=== PATIENT | male | born 1945 | race Caucasian/White ===

== ENCOUNTER 2017-03-30 16:43 | Inpatient (IN) ==
--- NOTE | 2017-03-30 17:56 | PROVIDER DOCUMENTATION ---
This chart was entered by Po Allen Scribe, acting as scribe for Hany Veloz CRNP. HPI-Syncope/Dizziness - General Source: patient - History of Present Illness-Syncope/Dizzy Prior Episodes: reports: single episode today Onset/Duration: reports: abrupt, this afternoon Timing: reports: gone now Position/Activity at time of episode: reports: activity (chasing chicken) Symptoms prior to episode: reports: lightheaded, other (shortness of breath) Context: reports: lost consciousness, collapsed. denies: incontinent of stool, lost pulse, seizure activity observed Loss of Consciousness: brief (seconds) Location of injury. (If syncope resulted in an injury.): reports: none Current Symptoms: reports: none/feels normal Recently Seen Here or By Another Healthcare Provider: No <Hany Veloz - Last Filed: 03/30/17 17:55> - General Source: patient <BriannaAlessandro MichaelArtemio - Last Filed: 03/30/17 21:31> - General Chief Complaint: Near Syncope Stated Complaint: syncope Time Seen by Provider: 03/30/17 17:30 Allergies/Adverse Reactions: Patient Allergies Allergy/AdvReac Type Severity Reaction Status Date / Time No Known Allergies Allergy Verified 03/30/17 17:48 Home Medications: Home Medication List Medication Instructions Recorded Confirmed Last Taken Type NK [No Home Medications] 03/30/17 03/30/17 Unknown History - History of Present Illness-Syncope/Dizzy Nature of Presenting Problem: Patient is a 71 y/o M that presents to the ER via EMS after having a syncopal episode after chasing his chickens. patient reports for the past 7 months getting short of breath due when he exerts himself. Denies chest pain, n/v, or visual changes. Hasn't seen a pcp for this. Reports when he was chasing the chickens today he got short of breath and passed out, feels back to his normal self now.. (Po Allen) Patient is a 71 y/o M that presents to the ER via EMS after having a syncopal episode after chasing his chickens. patient reports for the past 7 months getting short of breath due when he exerts himself. Denies chest pain, n/v, or visual changes. Hasn't seen a pcp for this. Reports when he was chasing the chickens today he got short of breath and passed out, feels back to his normal self now.. (Hany Veloz) Review of Systems - Adult - REVIEW OF SYSTEMS - ADULT Constitutional: denies: fever, fatique Eyes: denies: decreased vision, blurred vision, double vision Ears, Nose, Mouth & Throat: denies: ear discharge, ear pain, epistaxis, sinus problem, throat pain Cardiovascular: reports: syncope. denies: chest pain, palpitations Respiratory: reports: dyspnea on exertion, shortness of breath. denies: cough, wheezing Gastrointestinal: denies: abdominal pain, diarrhea, nausea, vomiting Genitourinary: reports: no symptoms reported Musculoskeletal: reports: no symptoms reported Integumentary: reports: no symptoms reported Neurological: reports: dizziness/vertigo, syncope. denies: headache/migraines, seizure Psychiatric: reports: no symptoms reported Endocrine: reports: no symptoms reported Hematologic/Lymphatic: reports: no symptoms reported Allergic/Immunologic: reports: no symptoms reported All Other Systems: Reviewed and Negative <Hany Veloz - Last Filed: 03/30/17 17:55> - REVIEW OF SYSTEMS - ADULT Constitutional: denies: fever <Alessandro Reed - Last Filed: 03/30/17 21:31> Past History - Adult - PAST MEDICAL HISTORY-ADULT Review of Records: reports: Old Records Reviewed, Nursing Assessment Review, Medications Reviewed <Hany Veloz - Last Filed: 03/30/17 17:55> - PAST MEDICAL HISTORY-ADULT Review of Records: reports: Old Records Reviewed, Nursing Assessment Review, Medications Reviewed, Social history reviewed & non-contributory. <Alessandro Reed - Last Filed: 03/30/17 21:31> Physical Exam-General - PHYSICAL EXAM-ADULT Initial Vital Signs Reviewed: Yes - CONSTITUTIONAL General Appearance: alert, no apparent distress - EYES Eyes: PERRL/EOMI, pink conjunctivae - HEAD, EARS, NOSE, MOUTH & THROAT HENMT: normocephalic/atraumatic, moist mucous membranes, normal ENT inspection - NECK Neck: non-tender, full range of motion, normal inspection - RESPIRATORY Respiratory: chest non-tender, lungs clear, normal breath sounds, no respiratory distress, no accessory muscle use - CARDIOVASCULAR Cardiovascular: regular rate, rhythm, no edema, no murmur - GASTROINTESTINAL (ABDOMEN) Abdominal Exam: normal bowel sounds, non tender, soft, no organomegaly, no pulsatile mass - MUSCULOSKELETAL Back Exam: no CVA tenderness, no vertebral tenderness Extremity: normal range of motion, normal inspection, no pedal edema, pelvis stable - SKIN Integumentary: normal color, warm/dry - NEUROLOGIC Neurologic: automatic mold sander II-XII nml as tested, no motor/sensory deficits. negative: aphasia, facial droop, focal weakness, motor weakness, sensory deficit - PSYCHIATRIC Psych/Mental Status: normal mood/affect, normal thought content, normal thought process, oriented x 3 <Hany Veloz - Last Filed: 03/30/17 17:55> - PHYSICAL EXAM-ADULT Initial Vital Signs Reviewed: Yes - CONSTITUTIONAL General Appearance: alert, no apparent distress <Alessandro Reed - Last Filed: 03/30/17 21:31> Progress - EKG 1 Time of EKG reading by physician:: 17:12 EKG Read and Signed by:: Vishnu Parker EKG Interpretation (*Must complete 3 of following elements*): Abnormal Rate: 69 Rhythm: NSR [place]: left [place] Interval: normal ST Wave: non-specific ST changes - CHANGE OF SHIFT REPORT (ED Provider) Report Given and Care Transferred to:: Dr. Reed Time of Transfer: 17:55 Items Pending: Labs, XRAY Results, CT/MRI Results <Hany Veloz - Last Filed: 03/30/17 17:55> - PLAN OF CARE/RESULTS Result Diagrams: 03/30/17 17:55 03/30/17 17:55 - CONSULTS/PCP/HOSPITALIST Notification #1 *Consult/PCP/Hospitalist*: Dr Dominique Time Discussed: 21:29 Consult Disposition: Admit #2 Consult: Dr Michael Time Discussed: 21:29 Consult Disposition: Will see in ED <Alessandro Reed - Last Filed: 03/30/17 21:31> - PLAN OF CARE/RESULTS Progress/Plan/Lab Results: Vital Signs - 8 hr 03/30/17 17:06 03/30/17 18:24 03/30/17 19:14 Pulse Rate 79 70 71 Respiratory Rate 21 23 20 Blood Pressure 105/62 104/63 103/64 O2 Sat by Pulse Oximetry 95 99 99 Laboratory Results - last 24 hr 03/30/17 03/30/17 03/30/17 17:55 17:55 17:55 WBC 9.23 RBC 4.43 L Hgb 13.3 L Hct 40.4 L MCV 91.2 MCH 30.0 MCHC 32.9 L RDW Std Deviation 13.6 Plt Count 192 MPV 10.3 Immature Gran % (Auto) 0.0 Neut % (Auto) 74.6 Lymph % (Auto) 14.4 L [place] % (Auto) 9.6 H Eos % (Auto) 1.2 Baso % (Auto) 0.2 Immature Gran # (Auto) 0.00 Neut # (Auto) 6.88 H Lymph # (Auto) 1.33 [place] # (Auto) 0.89 H Eos # (Auto) 0.11 Baso # (Auto) 0.02 D-Dimer Sodium 140 Potassium 4.6 Chloride 104 Carbon Dioxide 24 L Anion Gap 12 BUN 18 Creatinine 1.1 Estimated GFR/1.73 m2 > 60 BUN/Creatinine Ratio 16 Glucose 100 POC Glucose Calculated Osmolality 281 Calcium 8.8 Magnesium 2.2 Total Bilirubin 0.48 AST 27 ALT 15 Alkaline Phosphatase 57 Creatine Kinase 303 H Creatine Kinase Index 1.9 CK-MB (CK-2) 5.89 H Troponin T Xog-W-Sqrbapphxhp Pept 1843 H Total Protein 6.9 Albumin 3.8 Globulin 3.1 Albumin/Globulin Ratio 1.2 03/30/17 03/30/17 03/30/17 17:55 17:55 18:27 WBC RBC Hgb Hct MCV MCH MCHC RDW Std Deviation Plt Count MPV Immature Gran % (Auto) Neut % (Auto) Lymph % (Auto) [place] % (Auto) Eos % (Auto) Baso % (Auto) Immature Gran # (Auto) Neut # (Auto) Lymph # (Auto) [place] # (Auto) Eos # (Auto) Baso # (Auto) D-Dimer 0.27 Sodium Potassium Chloride Carbon Dioxide Anion Gap BUN Creatinine Estimated GFR/1.73 m2 BUN/Creatinine Ratio Glucose POC Glucose 96 Calculated Osmolality Calcium Magnesium Total Bilirubin AST ALT Alkaline Phosphatase Creatine Kinase Creatine Kinase Index CK-MB (CK-2) Troponin T 0.105 H Nsy-T-Gpkuntgrmcd Pept Total Protein Albumin Globulin Albumin/Globulin Ratio 03/30/17 03/30/17 19:15 19:15 WBC RBC Hgb Hct MCV MCH MCHC RDW Std Deviation Plt Count MPV Immature Gran % (Auto) Neut % (Auto) Lymph % (Auto) [place] % (Auto) Eos % (Auto) Baso % (Auto) Immature Gran # (Auto) Neut # (Auto) Lymph # (Auto) [place] # (Auto) Eos # (Auto) Baso # (Auto) D-Dimer Sodium Potassium Chloride Carbon Dioxide Anion Gap BUN Creatinine Estimated GFR/1.73 m2 BUN/Creatinine Ratio Glucose POC Glucose Calculated Osmolality Calcium Magnesium Total Bilirubin AST ALT Alkaline Phosphatase Creatine Kinase 298 H Creatine Kinase Index 2.2 CK-MB (CK-2) 6.52 H Troponin T 0.131 H Agq-K-Cmlmttdvsro Pept Total Protein Albumin Globulin Albumin/Globulin Ratio Orders Category Date Time Status Cardiac Monitoring DIRECTED Care 03/30/17 17:17 Active Saline Loc NOW Care 03/30/17 17:17 Active CHEST-2 VIEWS [RAD] Stat Exams 03/30/17 17:[address] HEAD W/O CONTRAST [CT] Stat Exams 03/30/17 17:33 Completed CBC WITH ELECTRONIC DIFF [HEME] Stat Lab 03/30/17 17:55 Completed CK PROFILE [SP CHEM] Stat Lab 03/30/17 17:55 Completed CK PROFILE [SP CHEM] Stat Lab 03/30/17 19:15 Completed COMPREHENSIVE METABOLIC PANEL [CHEM] Stat Lab 03/30/17 17:55 Completed D-DIMER [CHEM] Stat Lab 03/30/17 17:55 Completed MAGNESIUM [CHEM] Stat Lab 03/30/17 17:55 Completed PRO B-NATRIURETIC PEPTIDE Stat Lab 03/30/17 17:55 Completed TROPONIN T Stat Lab 03/30/17 17:55 Completed TROPONIN T Stat Lab 03/30/17 19:15 Completed Enoxaparin 1 mg/kg [Lovenox 1 mg/kg] Med 03/30/17 21:21 Discontinued 1 each SUBQ NOW ONE EKG [EKG] Stat Ther 03/30/17 17:17 Ordered EKG [EKG] Stat Ther 03/30/17 18:54 Ordered Departure - Critical Care Note This patient required my direct & personal management of CC.: No <Hany Veloz - Last Filed: 03/30/17 17:55> - Departure Date of Disposition Decision: 03/30/17 Time of Disposition Decision: 21:30 Certified Medical Emergency: Emergent - Critical Care Note This patient required my direct & personal management of CC.: No <Alessandro Reed - Last Filed: 03/30/17 21:31> - Departure DIAGNOSIS: Syncope Qualifiers: Syncope type: unspecified Qualified Code(s): R55 - Syncope and collapse Disposition: ADMITTED INPATIENT 09 Condition: Good Referrals and Follow-Ups: Fernando Martinez MD [Primary Care Provider] - Attestation - Physician/ DELICIA Attestation Patient care was provided by Advanced Practice Provider:: Yes Advanced Practice Provider:: Hany Veloz Advanced Practice Provider documentation review:: The Mid-level provider documentation, treatment plan and medical decision making was reviewed by the physician who agrees with all treatment and medical decision making by the MLP. The physician spent face to face time with patient:: Yes Advanced Practice Provider documentation review:: Supervising physician onsite and consulted in the evaluation and care of this patient. The physician did have a face to face encounter with the patient. <Hany Veloz - Last Filed: 03/30/17 17:55> - Physician/ DELICIA Attestation Patient care was provided by Advanced Practice Provider:: Yes Advanced Practice Provider documentation review:: The Mid-level provider documentation, treatment plan and medical decision making was reviewed by the physician who agrees with all treatment and medical decision making by the MLP. The physician spent face to face time with patient:: Yes Advanced Practice Provider documentation review:: Supervising physician onsite and consulted in the evaluation and care of this patient. The physician did have a face to face encounter with the patient. <Alessandro Reed - Last Filed: 03/30/17 21:31> This chart was documented by the indicated scribe, (Po Allen Scribe) and accurately reflects the services I performed and decisions made by me, Hany Veloz CRNP, as attested by the provider's signature.
[2017-03-30 18:11] LABS: MANUAL DIFF NEEDED? NO
[2017-03-30 18:14] LABS: BASO% 0.2 % (0.0-0.8); EOS# 0.11 X1000 (0.0-0.7); EOS% 1.2 % (0.0-10.0); HEMATOCRIT 40.4 % (42.0-52.0); HEMOGLOBIN 13.3 g/dL (14.0-18.0); LYMPH# 1.33 X1000 (1.2-3.4); LYMPH% 14.4 % (20.5-51.1); MCHC 32.9 g/dL (33-37); MCV 91.2 FL (81-99); MONO# 0.89 X1000 (0.11-0.59); MONO% 9.6 % (1.7-9.3); MPV 10.3 FL (7.4-10.4); NEUT% 74.6 % (42.2-75.2); PLT 192 X1000 (130-400); RBC 4.43 XMIL (4.7-6.1)
--- NOTE | 2017-03-30 18:40 | Diag Imaging Result Doc PS360 ---
EXAM: CT HEAD WITHOUT HISTORY: Syncope, dizziness TECHNIQUE: CT brain without contrast. Dose reduction protocol. COMPARISON: None. FINDINGS: No parenchymal hemorrhage. No epidural or subdural hematoma. No subarachnoid hemorrhage. No mass identified on this noncontrasted exam. No hydrocephalus. No sinus opacification. IMPRESSION: No hemorrhage. Negative brain CT without contrast. Electronically signed by Goldy Youngblood 03/30/2017 6:38 PM
[2017-03-30 18:43] LABS: AGAP 12; ALBUMIN 3.8 g/dL (3.5-5.0); ALKALINE PHOSPHATASE 57 U/L (32-122); BUN 18 mg/dL (8-22); CALCIUM 8.8 mg/dL (8.8-10.2); CHLORIDE 104 mmol/L (98-107); COSMO 281; GOT 27 U/L (10-34); GPT 15 U/L (10-44); MAGNESIUM 2.2 mg/dL (1.5-2.7); POTASSIUM 4.6 mmol/L (3.5-5.1); SODIUM 140 mmol/L (136-145); TCO2 24 mmol/L (25-35); TOTAL BILIRUBIN 0.48 mg/dL (0.20-1.00); TOTAL PROTEIN 6.9 g/dL (6.3-8.3)
[2017-03-30 18:45] LABS: CK PROFILE 303 U/L (24-204)
--- NOTE | 2017-03-30 18:58 | Diag Imaging Result Doc PS360 ---
EXAM: CHEST-2 VIEWS HISTORY: syncope TECHNIQUE: COMPARISON: None. FINDINGS: The lungs are well expanded. The heart is not enlarged. The vessels are not distended. There are no infiltrates. No pleural effusions. IMPRESSION: No acute abnormality. Electronically signed by Goldy Youngblood 03/30/2017 6:56 PM
[2017-03-30 19:12] LABS: CK INDEX 1.9 (0.0-2.5); CK-MB 5.89 ng/mL (0.0-5.0)
[2017-03-30 20:47] LABS: CK INDEX 2.2 (0.0-2.5); CK-MB 6.52 ng/mL (0.0-5.0)
[2017-03-30] MEDS ORDERED: LOVENOX 1 MG/KG SUBQ ONE (21:21)
--- NOTE | 2017-03-30 21:28 | ED EKG INTERP ---
This chart was entered by Elena Montiel Scribe, acting as scribe for Alessandro Reed MD. EKG Interpretation - EKG Time of EKG reading by physician:: 19:52 EKG Read and Signed by:: Alessandro Reed EKG Interpretation (*Must complete 3 of following elements*): Abnormal Rate: 68 Rhythm: normal sinus rhythm Comments: abnormal ECG Attestation - Physician/ DELICIA Attestation Patient care was provided by Advanced Practice Provider:: No The physician spent face to face time with patient:: Yes Advanced Practice Provider documentation review:: Supervising physician onsite and consulted in the evaluation and care of this patient. The physician did have a face to face encounter with the patient. This chart was documented by the indicated scribe, (Elena Montiel Scribe) and accurately reflects the services I performed and decisions made by me, Alessandro Reed MD, as attested by the provider's signature.
[2017-03-30] MEDS ORDERED: LOVENOX SUBQ ONE ×2 (21:45)
--- NOTE | 2017-03-30 23:04 | HISTORY AND PHYSICAL ---
PATIENT OF: Fernando Martinez MD REASON FOR ADMISSION: Syncope today. HISTORY OF ADMITTING ILLNESS: Mr. Raymundo Evans is a pleasant 71-year-old male with no significant past medical history. He reports that the last 5 years he has been having increasing shortness of breath with diminishing activity levels. He says before he could go about 3 blocks before he became short of breath 5 year ago, but now just going less than 20 feet he becomes a little short of breath. He also says the more he exerts himself, the shorter the distance he goes. He denies any chest pain, no palpitations, no cough, no fever, no chills. No PND or orthopnea. No leg swelling or extremity redness or pain. Today, the patient report that he was chasing some of his chickens that got out of the barn and he became profoundly short of breath and lightheaded with palpitations, but no chest pain. He then made his way to his off-road vehicle where he sat down in the front seat and passed out. His who is at bedside concurs with the patient's history and says that she noticed that he was profoundly pale, diaphoretic, clammy and pretty much limp. She tried to wake him up for about 2-5 minutes and eventually he started to stare and was very drowsy. By the time EMS came, he had come back to himself. The patient reiterates that he has had no anginal-type symptoms today other than diaphoresis, nausea, dizziness and some palpitations in addition to the aforementioned shortness of breath. Currently, he is asymptomatic. His cardiac enzymes on admission have been mildly elevated, and he is being admitted to work up his cardiac status. REVIEW OF SYSTEMS: Twelve system review is negative. Positive findings noted as above. ALLERGIES: No allergies. MEDICATIONS: No medications. SURGERY: Comprised of 2 mm lens implants and sinus surgery. FAMILY HISTORY: Both his siblings have had heart attacks. No diabetes in first-degree relatives. SOCIAL HISTORY: Does not smoke, drink, or use drugs. Lives with his . DIAGNOSTICS/LABORATORY: His EKG shows normal sinus rhythm with poor R wave, questionable septal wave in V1 V2. Left axis deviation, normal sinus rhythm and LVH by voltage criteria. His chemistry is completely normal. First troponin was 0.105, second one 0.131. Index is normal. CK 303, BNP 8000. D-dimer was negative. White count 9000, hemoglobin and hematocrit 13 and 40, platelets 192,000. Chest film was normal. CT head was normal. PHYSICAL EXAMINATION: VITAL SIGNS: Blood pressure 103/64, heart rate 71, respirations 20, temperature afebrile. 99% on room air. GENERAL: He is a pleasant elderly man who is not in acute distress. He is alert and oriented x3. Normal mood and affect. HEENT: Head is normocephalic, atraumatic. Eyes KIMBERLY, EOMI. Anicteric not pale. ENT and oropharyngeal exam is grossly normal. No central cyanosis noted. NECK: Supple. No JVD or carotid bruit. No thyromegaly. CHEST: Clear to auscultation. Good air entry both lung ambrosio. CARDIOVASCULAR: First and second heart sounds heard. There is a loud 3-4 ejection systolic murmur which radiates to the neck. Also decreases slightly with inspiration. Rhythm is regular (patient states he has had this murmur since his childhood days). Pulses distally have good volume in all extremities and are symmetrical. No edema appreciated in extremities. ABDOMEN: Full, soft, without tenderness. No masses or organomegaly. Bowel sounds are normal. RECTAL: Examination is deferred at this time. EXTREMITIES: No clubbing or peripheral cyanosis. NEUROLOGIC: No focal deficits. SKIN: Intact. No breakdown or lesion or erythema. MUSCULAR: Grossly normal. ASSESSMENT: 1. Syncope, valvular ? disease versus underlying ischemic etiology. 2. Probable umr-MC-ncypakcqs myocardial infarction. 3. Systolic murmur ? aortic stenosis. PLAN: Dr. Dominique was notified about this patient and will see patient in a.m. Recommended [facility]. We will start patient on aspirin, statins. No role for beta blockers in this patient at this point in time with marginal blood pressure and acceptable heart rate. An echocardiogram will be done to rule out severe valvular disease i.e. aortic stenosis which could present like this. I will defer to Dr. Dominique to decide if he wants to go ahead and catheterize this patient. A lipid panel has been ordered and will need to be followed. Serial cardiac enzymes and EKGs to be done to ensure patient does not revert to ST-elevation myocardial infarction mastectomy which would require percutaneous coronary intervention for treatment ? Plavix in this patient may be beneficial. However, if we think patient will need cardiothoracic surgery, this may delay care. Also, recommend doing O2 saturation monitoring with patient ambulating to ensure that there is no pulmonary component to his presentation. cc: MD Fernando Lux MD
[2017-03-31] MEDS ORDERED: ZOFRAN IV PRN (00:43)
[2017-03-31] MEDS ORDERED: TYLENOL PO PRN (00:43)
[2017-03-31] MEDS ORDERED: LIPITOR PO ONE (00:43)
--- NOTE | 2017-03-31 05:23 | EKG Report ---
Test Performed on : 03/30/2017 4:52:30 PM Test Reason : Chest Pain Blood Pressure : / mmHG Vent. Rate : 069 BPM Atrial Rate : 069 BPM P-R Int : 202 ms QRS Dur : 078 ms QT Int : 356 ms P-R-T Axes : 054 -37 033 degrees QTc Int : 381 ms Normal sinus rhythm. Left axis deviation Voltage criteria for left ventricular hypertrophy Anteroseptal infarct , age undetermined Abnormal ECG No previous ECGs available Unconfirmed Result
[2017-03-31 06:04] LABS: AGAP 10; ALBUMIN 3.7 g/dL (3.5-5.0); ALKALINE PHOSPHATASE 55 U/L (32-122); BUN 16 mg/dL (8-22); CALCIUM 8.2 mg/dL (8.8-10.2); CHLORIDE 106 mmol/L (98-107); COSMO 284; GOT 26 U/L (10-34); GPT 14 U/L (10-44); HDL 42 mg/dL (35-55); LDL 150 mg/dL; POTASSIUM 4.6 mmol/L (3.5-5.1); SODIUM 142 mmol/L (136-145); TCO2 26 mmol/L (25-35); TOTAL BILIRUBIN 0.68 mg/dL (0.20-1.00); TOTAL PROTEIN 6.6 g/dL (6.3-8.3); TRIGLYCERIDES 113 mg/dL (39-160); VLDL 23 mg/dL
[2017-03-31] MEDS ORDERED: PRILOSEC PO SCH (07:00)
[2017-03-31] MEDS ORDERED: ASPIRIN PO SCH (09:00)
[2017-03-31] MEDS ORDERED: LOVENOX SUBQ SCH (10:00)
--- NOTE | 2017-03-31 11:21 | CONSULTATION ---
DATE OF CONSULTATION: 03/31/2017 HISTORY OF PRESENT ILLNESS: Cardiology was consulted for syncope, aortic stenosis, non Q-wave myocardial infarction. Mr. Raymundo Evans is a 71-year-old gentleman with no significant past medical history other than having had a murmur. He has noticed increasing shortness of breath for the last 3-4 years and this has gradually worsened. He says that before he could walk 3 blocks before being short of breath; now he can walk 20 feet and he becomes short of breath. The patient reported that he was in his van and became profoundly short of breath and lightheaded associated with some palpitations. He then went to his of off-road vehicle. His noted him having a near almost syncopal episode. He was pale, diaphoretic and clammy. She says that he had passed out for a couple of minutes. EMT was called and he was brought to the emergency room and was subsequently admitted. FOURTEEN POINT REVIEW OF SYSTEMS: GI: There is no history of nausea, vomiting, diarrhea. There is no history of hematemesis or melena. Central nervous system: No focal weakness to suggest a CVA or TIA. system: There is no dysuria or hematuria. Respiratory system: There is no history of cough, expectoration, hemoptysis. There is no history of fevers or chills. Endocrine system: Stable. PAST MEDICAL HISTORY: 1. History of a longstanding murmur. 2. Sinus surgery. 3. Lens implant for cataract. FAMILY HISTORY: Both his siblings have had heart attacks. The patient does not smoke, does not drink. ALLERGIES: He is not known to be allergic to any medications. MEDICATIONS: He is not on any medications currently. PHYSICAL EXAMINATION: Vital Signs: On examination, the blood pressure was 103/64. Cardiovascular system: Normal jugular venous pressure. First and second sounds were heard. There was ejection systolic murmur in the aortic area conducted to the carotids. There is also soft systolic murmur in the mitral area. Respiratory System: Normal air entry. There is no crepitations or rhonchi. Abdomen: Soft, obese, nontender. There was no guarding or rigidity. Bowel sounds were heard. Central nervous system: Alert and able to move all 4 extremities. Extremities: Examination of extremities revealed no pedal edema. HEENT: Atraumatic, normocephalic. Pupils were equal and reacting to light. LABORATORY EXAMINATION: Revealed sodium 142, potassium 4.6, BUN 16, creatinine 1.1. Troponin abnormal at 0.117 and 0.131. CK 298 and CK-MB of 6.52. Hematology: WBC 9.3, hemoglobin 13.3, hematocrit 40, platelet count of 192. D-dimer 0.27. RADIOLOGICAL EXAMINATION: Chest x-ray revealed no specific airspace disease. Electrocardiogram revealed normal sinus rhythm with left axis deviation, left ventricular hypertrophy, nonspecific ST-T changes. CT of the head was done without contrast which was unremarkable. ASSESSMENT AND PLAN: 1. Mr. Raymundo Evans is a 71-year-old gentleman, who has been having progressive symptoms for the last 3-4 years, has a murmur, had an episode of syncopal attack with significant diaphoresis. EMT was called as mentioned in the detailed history above and patient was admitted. The patient has non Q-wave myocardial infarction. 2. Has severe aortic stenosis. Given this, I have recommended that he undergo right and left heart catheterization. Risks, benefits, alternatives were explained. Patient will be set up for left and right heart catheterization shortly. 3. As far as medications are concerned, he is on aspirin and Lovenox. We will continue that. He has also been started on Lipitor to 80 mg a day. 4. A detailed echocardiogram report will be dictated shortly. Thanks for the consult. We will follow hospital course. cc: Rosales Pham MD
--- NOTE | 2017-03-31 11:46 | PROGRESS NOTE ---
DATE: 03/31/2017 SUBJECTIVE: This patient feels better. This patient is not complaining of shortness of breath or chest pain at this moment. Family members at the bedside. All their questions were answered. OBJECTIVE: Vital Signs: Temperature 98.1 degrees, pulse 61, respiratory rate 14, blood pressure 130/63, oxygen saturation 99 on room air. HEENT: Head normocephalic. No trauma. PERRLA. Neck: Supple. No JVD. No masses. Central trachea. Chest: Clear to auscultation. No wheezing. No rales. Cardiovascular: RRR. Systolic murmur radiating to the neck. Abdomen: Soft, nontender, nondistended. No hepatosplenomegaly. Extremities: No edema. No clubbing. No cyanosis. Neurological Examination: The patient is alert and oriented x3. No focal neurological deficits. Laboratory: Sodium 142, potassium 4.6, chloride 106, bicarbonate 26, BUN 16, creatinine 1.1, glucose 96, calcium 8.2. Troponin 0.11. ASSESSMENT AND PLAN: 1. Syncope. This is likely secondary to severe aortic stenosis. Probably, he also has an underlying ischemic process. Cardiology department following this patient. They will try to get a cardiac catheterization done today. 2. Severe aortic stenosis. Again, cardiology department following this patient. We will follow their recommendations. He has no symptoms at this moment. 3. Probably non-ST elevation myocardial infarction, as above. 4. Deep vein thrombosis prophylaxis. Continue with Lovenox twice a day. CRITICAL CARE TIME: 35 minutes. cc: Denzel Bhatt MD
[2017-03-31] MEDS ORDERED: HEPARIN 1000 UNITS/NS 2,000 UNIT/1,000 ML IV.SOLN ONE (12:26)
[2017-03-31] MEDS ORDERED: MORPHINE ONE (13:01)
[2017-03-31] MEDS ORDERED: VERSED ONE (13:01)
[2017-03-31] MEDS ORDERED: CLAVE PUMP SET NO FILTER 12260 ONE (13:02)
[2017-03-31] MEDS ORDERED: NS 1,000 ML ONE ×2 (13:02→14:12)
[2017-03-31] MEDS ORDERED: CLAVE TWINSITE 32 IN 11959 ONE (13:02)
[2017-03-31] MEDS ORDERED: NS 100 ML ONE (13:17)
[2017-03-31 16:34] VITALS: BP 128/78
[2017-03-31] MEDS ORDERED: LIPITOR PO SCH (22:15)
--- NOTE | 2017-04-01 04:05 | ECHO REPORT ---
ORDER DATE: 03/31/2017 MEASUREMENTS: Left ventricular end-diastolic diameter 5.9. Systolic diameter 3.6. Posterior wall thickness 1.3. Septal thickness 1.4. Left atrium 4.3. Aortic root 4.0. SUMMARY: 1. Adequate quality study. 2. 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 Aortic valve configuration is difficult to clearly discern, but the aortic valve is probably trileaflet. Peak gradient across the aortic valve is 136 mmHg, with a mean gradient of 87 mmHg. Calculated aortic valve area 0.6 cm2. There is very mild aortic regurgitation. Mitral, tricuspid, and pulmonic valves are without structural abnormality, with mild mitral regurgitation and mild tricuspid regurgitation. The estimated systolic PA pressure by Doppler is 45 mmHg. The aortic root is mildly enlarged. 3. Normal left ventricular chamber size, with moderate concentric left hypertrophy demonstrated. Estimated left ejection fraction greater than 65%. No regional wall motion abnormalities are evident. Doppler suggests grade 1 left ventricular diastolic dysfunction. Left atrium is mildly enlarged. Right atrium and right ventricle are of normal size, with normal right ventricular systolic function. 4. No pericardial effusion. 5. Inferior vena cava not well-demonstrated. CONCLUSIONS: 1. Severe calcific aortic stenosis, with very mild aortic insufficiency. 2. Mild mitral regurgitation. 3. Mild tricuspid regurgitation, with mild pulmonary hypertension by Doppler. 4. Moderate concentric left hypertrophy, with estimated left ejection fraction at least 65%. 5. Mild left atrial enlargement. cc: MD Milagros Kowalski MD
--- NOTE | 2017-04-01 14:11 | CARDIAC CATH REPORT ---
PROCEDURE NAME: - PROCEDURE PERFORMED: Right and left heart catheterization with selective coronary angiography. Left ventriculogram not performed. INDICATIONS: A 71-year-old male with progressive exertional dyspnea and recent exertional syncope. Echocardiography indicates severe aortic stenosis. Troponin was very mildly elevated. ENTRY SITE: Right femoral vein and right femoral artery. CATHETERS USED: A 6-Russian thermodilution, 5-Russian JR4, 3DRC, JL4 and JL5. TECHNIQUE: After intravenous sedation with morphine and Versed, local anesthesia with lidocaine was applied over right femoral vein and right femoral artery. Venous access was established with placement of a 6-Russian sheath in the right femoral vein, using modified Seldinger technique. Arterial access was established with placement of a 5-Russian sheath in the right femoral artery, using modified Seldinger technique. Right heart catheterization was performed. Following this, left heart catheterization was performed utilizing JL4 catheter and soft tip straight wire. Following left heart catheterization, selective coronary angiography was performed. Upon completion of procedure, venous and arterial sheaths were removed and hemostasis facilitated with manual pressure. The patient tolerated the procedure without apparent complications. FINDINGS: Hemodynamics: Right atrial mean pressure 9. Right ventricular pressure 48/EDP of 14. Pulmonary artery pressure 48/18 with a mean of 29. Pulmonary capillary wedge pressure mean of 18. Pulmonary artery oxygen saturation 73% on room air. Femoral artery oxygen saturation 96% on room air. Mini cardiac output 5.8 L/min. Thermodilution cardiac output 5.3 L/min. Cardiac index 2.5 L/min per meter squared. Left ventricular pressure 220/EDP of 12. Aortic pressure 129/65. Peak- to-peak aortic valve gradient 97 mmHg, mean aortic valve gradient 81 mmHg. Aortic valve area 0.59 cm2. ANGIOGRAPHY: 1. Left ventriculogram not performed. 2. Left main coronary: The left main coronary is free of significant stenosis. 3. Left anterior descending coronary: Left anterior descending coronary demonstrates a severe (greater 95%) focal stenosis at midvessel. Remainder left anterior descending coronary and its branches demonstrate mild irregularities. 4. Left circumflex: Left circumflex coronary and its branches demonstrate mild irregularities, but no significant stenosis. 5. Right coronary: The dominant right coronary demonstrates mild irregularities, but no significant coronary stenosis. CONCLUSIONS: 1. Severe calcific aortic stenosis. 2. Mild to moderate pulmonary hypertension. 3. Right dominant coronary anatomy with very severe stenosis at midvessel and left anterior descending coronary. cc: Patricio Dominique MD
--- NOTE | 2017-04-18 16:16 | DISCHARGE SUMMARY ---
ADMISSION DATE: 03/30/2017 DISCHARGE DATE: 03/31/2017 IMAGING DONE DURING THIS HOSPITAL STAY: Echo: The patient had an echo showing severe aortic stenosis, with very mild aortic insufficiency. Mild mitral regurgitation. Mild tricuspid regurgitation. Mild pulmonary hypertension. Moderate left hypertrophy, with an estimated EF of at least 65%, and mild left atrial enlargement. CONSULTATIONS: Dr. Pham, Cardiology, was consulted during this admission. PROCEDURES: The patient did undergo a cardiac cath on March 31, which showed severe stenosis of the right dominant coronary and the LAD. HOSPITAL COURSE: In brief, the patient was admitted on March 30 after having increasing shortness of breath with activity and palpitations, and became very diaphoretic and clammy prior to presenting to the emergency room. He apparently also had a syncopal episode prior to presenting as well. With evaluation, it was found that he initially was suspected to have a non- ST elevation CA. He did undergo a heart cath pretty urgently, which was discussed, with the procedures showing very severe stenosis in the mid-vessel right dominant coronary and the left anterior descending. Therefore, it was facilitated emergently for him to be transferred to [facility], where he could have further intervention. As discussed, Cardiology helped facilitate this as well. He left shortly after his cardiac cath, in order to provide further intervention, to [facility]. DISCHARGE TIME: Greater than 30 minutes. Patient evaluated by me face to face, all the lab work, images, vitals signs were reviewed, Patient was evaluated by Cardiology and got a Cardiac Cath today , the decision to transfer this patient was made, to [facility] [place], I agree with the assessment and plan. Denzel John MD Dictated by JULIA Moran for Denzel Bhatt MD cc: JULIA Moran MD [facility]ISION[facility]ix[facility]
== END 2017-03-31 16:35 | disposition short-term general hospital (02) ==
LOC: ED 16:43 → SUATTDRO 23:51 → 3S 23:51
PROVIDERS: ATTEND Internal Medicine